=== PATIENT | female | born 1975 | race American Indian/Alaskan Native ===

== ENCOUNTER 2019-09-17 19:06 | Emergency (ER) | payer OTHER ==
[2019-09-17] MEDS ORDERED: cloNIDine 0.2 MG TAB PO ONE (20:18)
--- NOTE | 2019-09-17 20:54 | Emergency Department Report ---
HPI - General Chief Complaint: High BP PUI?: No Time Seen by Provider: 09/17/19 20:18 - HPI HPI: Room 18 The patient is a 44-year-old female present with a chief complaint of hypertension. The patient states last night while at rest she developed intermittent chest pain radiating to her back. The patient states the pain last ed for 4 hours and then resolved. Patient states that same time she also had intermittent headache and intermittent numbness in both hands. The patient went to the physician's office today and was found to be hypertensive and subsequently sent to the ED for further evaluation. Patient states she has not had any of the chest pain today and she currently does not have a headache. Patient denies shortness of breath, nausea/vomiting or diaphoresis with her chest pain. Patient denies cough. The patient states she was never diagnosed with hypertension in the past ED Past Medical Hx - Past Medical History Previous Medical History?: No - Surgical History Past Surgical History?: Yes Additional Surgical History: fibroids - Family History Family history: no significant - Social History Smoking Status: Former Smoker (None x20 years) Substance Use Type: None (Denies illicit drug use), Alcohol (Moderate) - Medications Home Medications: Home Medications Medication Instructions Recorded Confirmed Last Taken Type amLODIPine 5 mg PO DAILY #90 tab 09/17/19 Unknown Rx ED Review of Systems ROS: Stated complaint: BP HIGH Other details as noted in HPI Constitutional: denies: diaphoresis Eyes: denies: eye pain ENT: denies: throat pain Respiratory: denies: shortness of breath Cardiovascular: chest pain Endocrine: no symptoms reported Gastrointestinal: denies: nausea, vomiting Genitourinary: denies: dysuria Musculoskeletal: back pain Neurological: headache Physical Exam - Physical Exam Vital Signs: Vital Signs 09/17/19 09/17/19 09/17/19 19:14 20:19 20:30 Temperature 98.8 F Pulse Rate 88 73 Respiratory 18 16 Rate Blood Pressure 209/80 187/97 O2 Sat by Pulse 100 Oximetry Vital Signs 09/17/19 09/17/19 09/17/19 19:14 20:19 20:30 Temperature 98.8 F Pulse Rate 88 73 Respiratory 18 16 Rate Blood Pressure 209/80 187/97 Blood Pressure [Right] O2 Sat by Pulse 100 Oximetry 09/17/19 09/17/19 09/17/19 20:31 21:00 21:36 Temperature Pulse Rate 73 75 68 Respiratory 16 16 16 Rate Blood Pressure 171/89 Blood Pressure 187/97 177/88 [Right] O2 Sat by Pulse 99 98 100 Oximetry Physical Exam: GENERAL: The patient is well-developed well-nourished female lying on stretcher not appearing to be in acute distress. [] HEENT: Normocephalic. Atraumatic. Extraocular motions are intact. Patient has moist mucous membranes. NECK: Supple. Trachea midline CHEST/LUNGS: Clear to auscultation. There is no respiratory distress noted. HEART/CARDIOVASCULAR: Regular. There is no tachycardia. There is no gallop rub or murmur. ABDOMEN: Abdomen is soft, nontender. Patient has normal bowel sounds. There is no abdominal distention. SKIN: There is no rash. There is no edema. There is no diaphoresis. NEURO: The patient is awake, alert, and oriented. The patient is cooperative. The patient has no focal neurologic deficits. The patient has normal speech. Cranial nerves II through XII grossly intact, no drift MUSCULOSKELETAL: There is no evidence of acute injury. ED Course Vital Signs 09/17/19 09/17/19 09/17/19 19:14 20:19 20:30 Temperature 98.8 F Pulse Rate 88 73 Respiratory 18 16 Rate Blood Pressure 209/80 187/97 O2 Sat by Pulse 100 Oximetry ED Medical Decision Making - Lab Data Result diagrams: 09/17/19 20:55 09/17/19 20:55 Laboratory Tests 09/17/19 09/17/19 20:55 20:55 WBC 7.2 RBC 4.25 Hgb 8.6 L Hct 28.9 L MCV 68 L MCH 20 L MCHC 30 RDW 20.6 H Plt Count 421 Lymph % (Auto) Industrial Hygenist [place] % (Auto) Industrial Hygenist Eos % (Auto) Industrial Hygenist Baso % (Auto) Industrial Hygenist Lymph # Industrial Hygenist [place] # Industrial Hygenist Eos # Industrial Hygenist Baso # Industrial Hygenist Seg Neutrophils % Industrial Hygenist Seg Neutrophils # Industrial Hygenist Sodium 138 Potassium 4.1 Chloride 104.7 Carbon Dioxide 22 Anion Gap 15 BUN 7 Creatinine 0.6 L Estimated GFR > 60 BUN/Creatinine Ratio 12 Glucose 102 H Calcium 9.3 Total Creatine Kinase 179 H CK-MB (CK-2) 2.0 CK-MB (CK-2) Rel Index 1.1 Troponin T < 0.010 - EKG Data -: EKG Interpreted by [place] EKG shows normal: sinus rhythm Rate: normal - EKG Data When compared to previous EKG there are: previous EKG unavailable Interpretation: other (No ischemic changes seen) - Radiology Data Radiology results: report reviewed (Chest x-ray, CT head), image reviewed (Chest x-ray, CT head) interpreted by me: Chest x-ray-no focal infiltrates, no pneumothorax Findings [facility] [address] [place] [address] Cat Scan Report Signed Patient: FITO PIRES MR#: [id number] : 1975 Acct:[id number] Age/Sex: 44 / F ADM Date: 09/17/19 Loc: ED Attending Dr: Ordering Physician: ANTHONY GALVEZ MD Date of Service: 09/17/19 Procedure(s): CT head/brain wo con Accession Number(s): [id number] cc: ANTHONY GALVEZ MD CT HEAD WITHOUT CONTRAST INDICATION / CLINICAL INFORMATION: Hypertension, headache. TECHNIQUE: All CT scans at this location are performed using CT dose reduction for ALARA by means of automated exposure control. COMPARISON: None available. FINDINGS: HEMORRHAGE: No evidence of intracranial hemorrhage or extra-axial fluid collection. EXTRA-AXIAL SPACES: Cortical sulci, sylvian fissures and basilar cisterns have an unremarkable appearance. VENTRICULAR SYSTEM: The ventricular system is of normal size and configuration. CEREBRAL PARENCHYMA: No areas of abnormal brain parenchymal attenuation are identified. There is no indication of recent infarction. MIDLINE SHIFT OR HERNIATION: There is no mass effect. CEREBELLUM / BRAINSTEM: Brainstem and cerebellum have an unremarkable appearance. MIDLINE STRUCTURES:No abnormalities of the pituitary gland or pineal region are identified. INTRACRANIAL VESSELS:No abnormalities are identified on this noncontrast head CT. ORBITS: visualized portions of the orbits have an unremarkable appearance. SOFT TISSUES of HEAD: No significant abnormality. CALVARIUM: Evaluation of bone windows reveals no abnormalities. PARANASAL SINUSES / MASTOID AIR CELLS: Paranasal sinuses are free from inflammatory mucosal disease. Mastoid air cells are normally pneumatized. ADDITIONAL FINDINGS: None. IMPRESSION: 1. Normal head CT without contrast. Signer Name: Solomon Stevens MD Signed: 09/17/2019 9:45 PM Workstation Name: [id number] Transcribed By: Dictated By: Solomon Stevens MD Electronically Authenticated By: Solomon Stevens MD Signed Date/Time: 09/17/192144 DD/ 27 TD/TT: Findings [facility] [address] [place] [address] XRay Report Signed Patient: FITO PIRES MR#: [id number] : 1975 Acct:[id number] Age/Sex: 44 / F ADM Date: 09/17/19 Loc: ED Attending Dr: Ordering Physician: ANTHONY GALVEZ MD Date of Service: 09/17/19 Procedure(s): XR chest 1V ap Accession Number(s): [id number] cc: ANTHONY GALVEZ MD Fluoro Time In Minutes: CHEST 1 VIEW INDICATION / CLINICAL INFORMATION: chest pain. COMPARISON: None available. FINDINGS: SUPPORT DEVICES: None. HEART / MEDIASTINUM: No significant abnormality. LUNGS / PLEURA: No significant pulmonary or pleural abnormality.. No pneumothorax. ADDITIONAL FINDINGS: No significant additional findings. IMPRESSION: 1. No acute findings. Signer Name: Nick Pruitt MD Signed: 09/17/2019 9:14 PM Workstation Name: [id number] Transcribed By: Dictated By: Nick Pruitt MD Electronically Authenticated By: Nick Pruitt MD Signed Date/Time: 09/17/192113 DD/ 13 TD/TT: - Differential Diagnosis Hypertensive urgency, ACS, ICH, Critical care attestation.: If time is entered above; I have spent that time in minutes in the direct care of this critically ill patient, excluding procedure time. ED Disposition Clinical Impression: Hypertension Disposition: DC-01 TO HOME OR SELFCARE Is pt being admited?: No Does the pt Need Aspirin: No Condition: Stable Instructions: Hypertension (ED) Additional Instructions: Return to the emergency department should you develop worsening symptoms, inability to tolerate food or liquids, high fever or any other concerns Prescriptions: amLODIPine 5 mg PO DAILY #90 tab Referrals: [facility] [Provider Group] - 3-5 Days VITALY CAMARA DO [Staff Physician] - 3-5 Days (Dr Camara is a primary physician. Please follow-up with him to be established as a patient) Time of Disposition: 21:58
--- NOTE | 2019-09-17 21:19 | XRay Report ---
CHEST 1 VIEW INDICATION / CLINICAL INFORMATION: chest pain. COMPARISON: None available. FINDINGS: SUPPORT DEVICES: None. HEART / MEDIASTINUM: No significant abnormality. LUNGS / PLEURA: No significant pulmonary or pleural abnormality.. No pneumothorax. ADDITIONAL FINDINGS: No significant additional findings. IMPRESSION: 1. No acute findings. Signer Name: Nick Pruitt MD Signed: 09/17/2019 9:14 PM Workstation Name: [id number]
[2019-09-17 21:25] LABS: BUN/Creatinine Ratio 12; Blood Urea Nitrogen 7 mg/dL (7-17); Calcium 9.3 mg/dL (8.4-10.2); Hemolysis Index 17; Mean Corpuscular HGB Conc 30 % (30-34); Platelet Count 421 K/mm3 (140-440); Red Blood Count 4.25 M/mm3 (3.65-5.03)
[2019-09-17 21:26] LABS: Hematocrit 28.9 % (30.3-42.9); Hemoglobin 8.6 gm/dl (10.1-14.3); Mean Corpuscular Volume 68 fl (79-97); Red Cell Distribution Width 20.6 % (13.2-15.2)
--- NOTE | 2019-09-17 21:49 | Cat Scan Report ---
CT HEAD WITHOUT CONTRAST INDICATION / CLINICAL INFORMATION: Hypertension, headache. TECHNIQUE: All CT scans at this location are performed using CT dose reduction for ALARA by means of automated e xposure control. COMPARISON: None available. FINDINGS: HEMORRHAGE: No evidence of intracranial hemorrhage or extra-axial fluid collection. EXTRA-AXIAL SPACES: Cortical sulci, sylvian fissures and basilar cisterns have an unremarkable appear ance. VENTRICULAR SYSTEM: The ventricular system is of normal size and configuration. CEREBRAL PARENCHYMA: No areas of abnormal brain parenchymal attenuation are identified. There is no i ndication of recent infarction. MIDLINE SHIFT OR HERNIATION: There is no mass effect. CEREBELLUM / BRAINSTEM: Brainstem and cerebellum have an unremarkable appearance. MIDLINE STRUCTURES:No abnormalities of the pituitary gland or pineal region are identified. INTRACRANIAL VESSELS:No abnormalities are identified on this noncontrast head CT. ORBITS: visualized portions of the orbits have an unremarkable appearance. SOFT TISSUES of HEAD: No significant abnormality. CALVARIUM: Evaluation of bone windows reveals no abnormalities. PARANASAL SINUSES / MASTOID AIR CELLS: Paranasal sinuses are free from inflammatory mucosal disease. Mastoid air cells are normally pneumatized. ADDITIONAL FINDINGS: None. IMPRESSION: 1. Normal head CT without contrast. Signer Name: Solomon Stevens MD Signed: 09/17/2019 9:45 PM Workstation Name: [id number]
[2019-09-17 22:25] VITALS: BP 157/84
[2019-09-17 22:42] LABS: Total Cells Counted 100
[2019-09-17 22:46] LABS: Anisocytosis 1+; Hypochromasia Few; Macrocytosis Few; Ovalocytes Few; Platelet Estimate Consistent w Auto; Target Cells Rare
== END 2019-09-17 22:25 | disposition home or self-care (01) ==
LOC: ED 19:06
DX: I10 Essential (primary) hypertension (principal); Z87.891 Personal history of nicotine dependence; Z79.899 Other long term (current) drug therapy
CPT/HCPCS: 36415; 70450; 71045; 80048; 82550; 82553; 84484; 85007; 85025; 93005

== ENCOUNTER 2020-08-03 16:35 | Emergency (ER) | payer OTHER ==
[2020-08-03 16:49] VITALS: BP 120/90
[2020-08-03 19:49] LABS: Hematocrit 32.8 % (30.3-42.9); Hemoglobin 10.2 gm/dl (10.1-14.3); Mean Corpuscular HGB Conc 31 % (30-34); Mean Corpuscular Volume 71 fl (79-97); Platelet Count 366 K/mm3 (140-440); Red Blood Count 4.63 M/mm3 (3.65-5.03)
[2020-08-03 19:54] LABS: Red Cell Distribution Width 26.4 % (13.2-15.2)
[2020-08-03 20:13] LABS: Alanine Aminotransferase 20 units/L (7-56); Albumin 4.2 g/dL (3.9-5); BUN/Creatinine Ratio 10; Blood Urea Nitrogen 7 mg/dL (7-17); Calcium 8.2 mg/dL (8.4-10.2); Hemolysis Index 1
--- NOTE | 2020-08-03 20:21 | XRay Report ---
CHEST 2 VIEWS INDICATION / CLINICAL INFORMATION: chest pain and palpitations. COMPARISON: None available. FINDINGS: SUPPORT DEVICES: None. HEART / MEDIASTINUM: No significant abnormality. LUNGS / PLEURA: No significant pulmonary or pleural abnormality. No pneumothorax. ADDITIONAL FINDINGS: No significant additional findings. IMPRESSION: 1. No acute findings. Signer Name: Joesph Fairbanks MD Signed: 08/03/2020 8:17 PM Workstation Name: [id number]
--- NOTE | 2020-08-04 01:01 | Emergency Department Report ---
ED General Adult HPI - General Chief complaint: High BP Stated complaint: HBP PUI?: No Source: patient Mode of arrival: Ambulatory Limitations: No Limitations - History of Present Illness Initial comments: 45-year-old F Bah[place]ian female past medical history of hypertension reports emergency department complaining of 1 more week history of various episodes of chest pain unknown etiology chest pain is sporadic in duration and discomfort. She reports not taking her blood pressure medication over several months. When pain is present pain is sharp throbbing in nature she reports no fever, chills, sweats. No nausea, no vomiting no hemoptysis no hematemesis hematochezia. -: week(s) Location: chest Radiation: non-radiation Quality: aching, dull Improves with: none Worsens with: none Associated Symptoms: chest pain. denies: confusion, diaphoresis, fever/chills, headaches, loss of appetite, rash, seizure, syncope, weakness - Related Data Previous Rx's Medication Instructions Recorded Last Taken Type amLODIPine 5 mg PO DAILY #90 tab 09/17/19 Unknown Rx Allergies Allergy/AdvReac Type Severity Reaction Status Date / Time No Known Allergies Allergy Verified 09/17/19 19:17 ED Review of Systems ROS: Stated complaint: HBP Other details as noted in HPI Comment: All other systems reviewed and negative ED Past Medical Hx - Past Medical History Hx Hypertension: Yes - Surgical History Past Surgical History?: Yes Additional Surgical History: fibroids - Social History Smoking Status: Never Smoker - Medications Home Medications: Home Medications Medication Instructions Recorded Confirmed Last Taken Type amLODIPine 5 mg PO DAILY #90 tab 09/17/19 Unknown Rx ED Physical Exam - General Limitations: No Limitations General appearance: alert, in no apparent distress - Head Head exam: Present: atraumatic, normocephalic - Eye Eye exam: Present: normal appearance, PERRL, EOMI Pupils: Present: normal accommodation - ENT ENT exam: Present: mucous membranes moist - Neck Neck exam: Present: normal inspection, full ROM - Respiratory Respiratory exam: Present: normal lung sounds bilaterally. Absent: respiratory distress, wheezes, rales, chest wall tenderness, accessory muscle use - Cardiovascular Cardiovascular Exam: Present: regular rate, normal rhythm. Absent: systolic murmur, diastolic murmur, rubs, gallop - GI/Abdominal GI/Abdominal exam: Present: soft, tenderness (Mild tenderness to the epigastric region with palpation. No bloating bowel sounds normal. No Lozoya sign, no Rovsing, no Michael Pittman, no tenderness at McBurney's), normal bowel sounds - Extremities Exam Extremities exam: Present: normal inspection, tenderness, normal capillary refill - Back Exam Back exam: Present: normal inspection. Absent: CVA tenderness (R), CVA tenderness (L) - Neurological Exam Neurological exam: Present: alert, oriented X3, CN II-XII intact, normal gait - Psychiatric Psychiatric exam: Present: normal affect, normal mood. Absent: manic, homicidal ideation - Skin Skin exam: Present: warm, dry, intact, normal color. Absent: rash, diaphoretic ED Course Vital Signs 08/03/20 16:45 Temperature 99.1 F Pulse Rate 74 Respiratory 16 Rate Blood Pressure 120/90 [Right] O2 Sat by Pulse 98 Oximetry ED Medical Decision Making - Lab Data Result diagrams: 08/03/20 19:13 08/03/20 19:13 - EKG Data EKG shows normal: sinus rhythm Rate: normal - EKG Data Interpretation: normal EKG - Radiology Data Radiology results: report reviewed [address] [place] [address] XRay Report Signed Patient: FITO PIRES MR#: [id number] : 1975 Acct:[id number] Age/Sex: 45 / F ADM Date: 08/03/20 Loc: ED Attending Dr: Ordering Physician: MYLA RIOS Date of Service: 08/03/20 Procedure(s): XR chest routine 2V Accession Number(s): [id number] cc: MYLA RIOS Fluoro Time In Minutes: CHEST 2 VIEWS INDICATION / CLINICAL INFORMATION: chest pain and palpitations. COMPARISON: None available. FINDINGS: SUPPORT DEVICES: None. HEART / MEDIASTINUM: No significant abnormality. LUNGS / PLEURA: No significant pulmonary or pleural abnormality. No pneumothorax. ADDITIONAL FINDINGS: No significant additional findings. IMPRESSION: 1. No acute findings. Signer Name: Joesph Fairbanks MD Signed: 08/03/2020 8:17 PM Workstation Name: [id number] Transcribed By: CW Dictated By: JENNIFER FAIRBANKS MD Electronically Authenticated By: JENNIFER FAIRBANKS MD Signed Date/Time: 08/03/202016 DD/ 16 TD/TT: - Medical Decision Making This patient presents with chest pain that is very unlikely angina or acute coronary syndrome. The emergency department evaluation has not identified any ca use for suspicion that this chest pain has a cardiac etiology. Based on their history, EKG (which showed no evidence of ischemia or infarction) and imaging, in addition to the patient's physical exam, I see no evidence at this time for a malignant etiology for the patient's chest pain. There is no acute evidence for pulmonary embolus, acute myocardial infarction, pneumothorax, Boerhaeve syndrome, cardiac tamponade, thoracic artery dissection, or any other emergent cardiac, pulmonary or aortic pathology. Given the low pre-test probability for cardiac etiology of chest pain and the absence of any sign of ischemia or infarction, discharge for outpatient follow-up and further evaluation is reaso nable. I have explained to the patient that even though a cardiac problem is very unlikely, follow-up and further testing is required to reduce further the already small uncertainty that exists. Other life-threatening diagnoses have been considered. The patient understands the need to return immediately if their symptoms worsen or they develop any new symptoms, and not to engage in any significant exertional activity until follow-up is obtained. Critical care attestation.: If time is entered above; I have spent that time in minutes in the direct care of this critically ill patient, excluding procedure time. ED Disposition Clinical Impression: Chest pain at rest Disposition: DC-01 TO HOME OR SELFCARE Is pt being admited?: No Does the pt Need Aspirin: No Condition: Stable Instructions: Nonspecific Chest Pain, Adult Additional Instructions: As previously discussed your findings today were normal please be sure to follow-up with cardiology for further evaluation of your chest pain. Referrals: PRIMARY MD RAGINI [Primary Care Provider] - 3-5 Days KRIS VELASQUEZ MD [Staff Physician] - 3-5 Days
--- NOTE | 2020-08-06 09:30 | Electrocardiograph Report ---
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
== END 2020-08-04 01:30 | disposition home or self-care (01) ==
LOC: ED 16:35
DX: R07.89 Other chest pain (principal); I10 Essential (primary) hypertension; Z98.890 Other specified postprocedural states; Z79.899 Other long term (current) drug therapy
CPT/HCPCS: 36415; 71046; 80053; 83690; 84484; 85027; 93005

== ENCOUNTER 2020-11-19 19:40 | Emergency (ER) | payer OTHER ==
[2020-11-19] MEDS ORDERED: ASPIRIN 325 MG TAB PO ONE (21:30)
[2020-11-19 22:19] LABS: Basophils # (Auto) 0.1 K/mm3 (0.0-0.1); Basophils % (Auto) 1.1 % (0.0-1.8); Eosinophils # (Auto) 0.2 K/mm3 (0.0-0.4); Eosinophils % (Auto) 2.6 % (0.0-4.3); Hematocrit 33.8 % (30.3-42.9); Hemoglobin 10.8 gm/dl (10.1-14.3); Lymphocytes # (Auto) 2.1 K/mm3 (1.2-5.4); Lymphocytes % (Auto) 26.9 % (13.4-35.0); Mean Corpuscular HGB Conc 32 % (30-34); Mean Corpuscular Volume 81 fl (79-97); Monocytes # (Auto) 0.4 K/mm3 (0.0-0.8); Monocytes % (Auto) 5.6 % (0.0-7.3); Platelet Count 392 K/mm3 (140-440); Red Blood Count 4.17 M/mm3 (3.65-5.03); Red Cell Distribution Width 18.3 % (13.2-15.2)
[2020-11-19 22:30] LABS: Alanine Aminotransferase 23 units/L (7-56); Albumin 4.4 g/dL (3.9-5); Blood Urea Nitrogen 7 mg/dL (7-17); Calcium 8.9 mg/dL (8.4-10.2); Hemolysis Index 3
[2020-11-19 22:50] LABS: BUN/Creatinine Ratio 14
--- NOTE | 2020-11-19 23:29 | XRay Report ---
CHEST 2 VIEWS INDICATION / CLINICAL INFORMATION: chest pain. COMPARISON: 08/03/20 FINDINGS: SUPPORT DEVICES: None. HEART / MEDIASTINUM: No significant abnormality. LUNGS / PLEURA: No significant pulmonary or pleural abnormality. No pneumothorax. ADDITIONAL FINDINGS: No significant additional findings. IMPRESSION: 1. No acute findings. Signer Name: Kimberli Khan MD Signed: 11/19/2020 11:24 PM Workstation Name: [id number]
[2020-11-20] MEDS ORDERED: BUTALB/ACETAMINOPHEN/CAFFEINE TAB PO ONE (11:00)
[2020-11-20] MEDS ORDERED: amLODIPine 5 MG TAB PO ONE (11:00)
--- NOTE | 2020-11-20 11:02 | Emergency Department Report ---
ED General Adult HPI - General Chief complaint: Chest Pain Stated complaint: HTN Time Seen by Provider: 11/20/20 10:40 Source: patient Mode of arrival: Ambulatory Limitations: No Limitations - History of Present Illness Initial comments: Patient presents to the emergency department the chief complaint of elevated blood pressure. Patient states she has not taken blood pressure medications in over 6 months. Patient patient with urgent care yesterday to get blood pressure meds prescribed to her and upon evaluation she was told to come to the ED due to her having chest pain and headache. Patient dates she had chest pain continuously for the last couple of days but has been present for the last 6 months. Patient states that the headache is throbbing in nature and has been present for approximately 2 to 3 days. Patient denies this being the worst he adache of her life. Patient states she was told her systolic blood pressures greater than 200 at urgent care. -: unknown Location: head, chest Severity scale (0 -10): 6 Quality: dull Consistency: constant Improves with: none Worsens with: none Associated Symptoms: denies other symptoms Treatments Prior to Arrival: none - Related Data Previous Rx's Medication Instructions Recorded Last Taken Type amLODIPine 5 mg PO DAILY #90 tab 09/17/19 Unknown Rx amLODIPine [Norvasc] 10 mg PO DAILY #30 tab 11/20/20 Unknown Rx hydroCHLOROthiazide [Hctz] 12.5 mg PO QDAY #30 capsule 11/20/20 Unknown Rx Allergies Allergy/AdvReac Type Severity Reaction Status Date / Time No Known Allergies Allergy Verified 11/20/20 10:31 ED Review of Systems ROS: Stated complaint: HTN Other details as noted in HPI Comment: All other systems reviewed and negative Constitutional: denies: chills, fever Eyes: denies: eye pain, eye discharge, vision change ENT: denies: ear pain, throat pain Respiratory: denies: cough, shortness of breath, wheezing Cardiovascular: chest pain. denies: palpitations Endocrine: no symptoms reported Gastrointestinal: denies: abdominal pain, nausea, diarrhea Genitourinary: denies: urgency, dysuria, discharge Musculoskeletal: denies: back pain, joint swelling, arthralgia Skin: denies: rash, lesions Neurological: headache. denies: weakness, paresthesias Psychiatric: denies: anxiety, depression Hematological/Lymphatic: denies: easy bleeding, easy bruising ED Past Medical Hx - Past Medical History Previous Medical History?: Yes Hx Hypertension: Yes - Surgical History Past Surgical History?: Yes Additional Surgical History: fibroids - Social History Smoking Status: Never Smoker Substance Use Type: None - Medications Home Medications: Home Medications Medication Instructions Recorded Confirmed Last Taken Type amLODIPine 5 mg PO DAILY #90 tab 09/17/19 11/20/20 Unknown Rx amLODIPine [Norvasc] 10 mg PO DAILY #30 tab 11/20/20 Unknown Rx hydroCHLOROthiazide [Hctz] 12.5 mg PO QDAY #30 capsule 11/20/20 Unknown Rx ED Physical Exam - General Limitations: No Limitations General appearance: alert, in no apparent distress - Head Head exam: Present: atraumatic, normocephalic - Eye Eye exam: Present: normal appearance - ENT ENT exam: Present: mucous membranes moist - Neck Neck exam: Present: normal inspection - Respiratory Respiratory exam: Present: normal lung sounds bilaterally. Absent: respiratory distress - Cardiovascular Cardiovascular Exam: Present: regular rate, normal rhythm. Absent: systolic murmur, diastolic murmur, rubs, gallop - GI/Abdominal GI/Abdominal exam: Present: soft, normal bowel sounds. Absent: distended, tende rness - Extremities Exam Extremities exam: Present: normal inspection - Back Exam Back exam: Present: normal inspection - Neurological Exam Neurological exam: Present: alert, oriented X3, CN II-XII intact. Absent: motor sensory deficit - Psychiatric Psychiatric exam: Present: normal affect, normal mood - Skin Skin exam: Present: warm, dry, intact, normal color. Absent: rash ED Course Vital Signs 11/19/20 11/20/20 11/20/20 21:14 09:49 10:01 Temperature 98.6 F Pulse Rate 84 60 58 L Respiratory 16 20 17 Rate Blood Pressure 200/100 Blood Pressure [Left] O2 Sat by Pulse 100 100 100 Oximetry 11/20/20 11/20/20 11/20/20 10:15 10:28 10:31 Temperature Pulse Rate 54 L 55 L Respiratory 16 16 18 Rate Blood Pressure Blood Pressure [Left] O2 Sat by Pulse 100 99 100 Oximetry 11/20/20 11/20/20 11/20/20 10:45 11:01 11:12 Temperature Pulse Rate 56 L 65 64 Respiratory 16 16 16 Rate Blood Pressure 205/90 Blood Pressure [Left] O2 Sat by Pulse 100 100 Oximetry 11/20/20 11/20/20 11/20/20 11:15 11:31 11:45 Temperature Pulse Rate 59 L 60 54 L Respiratory 16 11 L 16 Rate Blood Pressure 205/90 203/88 212/87 Blood Pressure [Left] O2 Sat by Pulse 100 100 100 Oximetry 11/20/20 11/20/20 11/20/20 12:01 12:14 12:47 Temperature Pulse Rate 52 L 85 64 Respiratory 14 16 15 Rate Blood Pressure 202/90 179/69 Blood Pressure 205/90 [Left] O2 Sat by Pulse 100 97 100 Oximetry ED Medical Decision Making - Lab Data Result diagrams: 11/19/20 21:33 11/19/20 21:33 Lab Results 11/19/20 11/19/20 11/19/20 Range/Units 21:33 21:33 21:33 WBC 7.8 (4.5-11.0) K/mm3 RBC 4.17 (3.65-5.03) M/mm3 Hgb 10.8 (10.1-14.3) gm/dl Hct 33.8 (30.3-42.9) % MCV 81 (79-97) fl MCH 26 L (28-32) pg MCHC 32 (30-34) % RDW 18.3 H (13.2-15.2) % Plt Count 392 (140-440) K/mm3 Lymph % (Auto) 26.9 (13.4-35.0) % Howard % (Auto) 5.6 (0.0-7.3) % Eos % (Auto) 2.6 (0.0-4.3) % Baso % (Auto) 1.1 (0.0-1.8) % Lymph # (Auto) 2.1 (1.2-5.4) K/mm3 Howard # (Auto) 0.4 (0.0-0.8) K/mm3 Eos # (Auto) 0.2 (0.0-0.4) K/mm3 Baso # (Auto) 0.1 (0.0-0.1) K/mm3 Seg Neutrophils % 63.8 (40.0-70.0) % Seg Neutrophils # 5.0 (1.8-7.7) K/mm3 Sodium 139 (137-145) mmol/L Potassium 3.9 (3.6-5.0) mmol/L Chloride 104.5 (98-107) mmol/L Carbon Dioxide 23 (22-30) mmol/L Anion Gap 15 mmol/L BUN 7 (7-17) mg/dL Creatinine 0.5 L (0.6-1.2) mg/dL Estimated GFR > 60 ml/min BUN/Creatinine Ratio 14 % Glucose 92 (65-100) mg/dL Calcium 8.9 (8.4-10.2) mg/dL Total Bilirubin < 0.20 (0.1-1.2) mg/dL AST 22 (5-40) units/L ALT 23 (7-56) units/L Alkaline Phosphatase 69 (35-129) units/L Troponin T < 0.010 (0.00-0.029) ng/mL Total Protein 7.6 (6.3-8.2) g/dL Albumin 4.4 (3.9-5) g/dL Albumin/Globulin Ratio 1.4 % HCG, Qual Negative (Negative) 11/20/20 11/20/20 Range/Units 01:30 05:41 WBC (4.5-11.0) K/mm3 RBC (3.65-5.03) M/mm3 Hgb (10.1-14.3) gm/dl Hct (30.3-42.9) % MCV (79-97) fl MCH (28-32) pg MCHC (30-34) % RDW (13.2-15.2) % Plt Count (140-440) K/mm3 Lymph % (Auto) (13.4-35.0) % Howard % (Auto) (0.0-7.3) % Eos % (Auto) (0.0-4.3) % Baso % (Auto) (0.0-1.8) % Lymph # (Auto) (1.2-5.4) K/mm3 Howard # (Auto) (0.0-0.8) K/mm3 Eos # (Auto) (0.0-0.4) K/mm3 Baso # (Auto) (0.0-0.1) K/mm3 Seg Neutrophils % (40.0-70.0) % Seg Neutrophils # (1.8-7.7) K/mm3 Sodium (137-145) mmol/L Potassium (3.6-5.0) mmol/L Chloride (98-107) mmol/L Carbon Dioxide (22-30) mmol/L Anion Gap mmol/L BUN (7-17) mg/dL Creatinine (0.6-1.2) mg/dL Estimated GFR ml/min BUN/Creatinine Ratio % Glucose (65-100) mg/dL Calcium (8.4-10.2) mg/dL Total Bilirubin (0.1-1.2) mg/dL AST (5-40) units/L ALT (7-56) units/L Alkaline Phosphatase (35-129) units/L Troponin T < 0.010 < 0.010 (0.00-0.029) ng/mL Total Protein (6.3-8.2) g/dL Albumin (3.9-5) g/dL Albumin/Globulin Ratio % HCG, Qual (Negative) - EKG Data -: EKG Interpreted by Me EKG shows normal: sinus rhythm Rate: normal - Radiology Data Radiology results: report reviewed - Medical Decision Making RESULTS DISCUSSED WITH PT Critical care attestation.: If time is entered above; I have spent that time in minutes in the direct care of this critically ill patient, excluding procedure time. ED Disposition Clinical Impression: Hypertension, Chest pain, non-cardiac, Headache Disposition: TO HOME OR SELFCARE Is pt being admited?: No Does the pt Need Aspirin: No Condition: Stable Instructions: Hypertension (ED), Nonspecific Chest Pain, Adult Additional Instructions: return if worse Referrals: PRIMARY CARE,MD [Primary Care Provider] - 3-5 Days JOAQUIN JOSEPH MD [Staff Physician] - 3-5 Days [facility] [Provider Group] - 3-5 Days [facility] [Provider Group] - 3-5 Days DESMOND SERRATO MD [Staff Physician] - 3-5 Days [facility] [Outside] - 3-5 Days Heart Score - HEART Score History: Slightly suspicious EKG: Normal Age: < 45 Risk factors: 1-2 risk factors Troponin: < normal limit HEART Score: 1 - EKG Read Time Time EKG Completed: 00:00 EKG Read Time: 00:00 - Critical Actions Critical Actions: 0-3 pts:0.9-1.7%risk of adverse cardiac event.Candidate for discharge
[2020-11-20 12:48] VITALS: BP 179/69
--- NOTE | 2020-11-20 12:51 | Cat Scan Report ---
CT head/brain wo con INDICATION / CLINICAL INFORMATION: 45 years Female; Headache. TECHNIQUE: Routine CT head without contrast. All CT scans at this location are performed using CT dos e reduction for ALARA by means of automated exposure control. COMPARISON: The study is compared to the previous CT of 09/17/2019. FINDINGS: BRAIN / INTRACRANIAL CONTENTS: The brain parenchyma appears to demonstrate appropriate attenuation. T he ventricular system remains within normal limits in size and configuration. There is no clear CT ev idence of acute intracranial hemorrhage or significant mass effect. ORBITS: No significant abnormality of visualized orbits. SINUSES / MASTOIDS: No significant abnormality in the visualized paranasal sinuses or mastoid air marisol ls. CRANIOCERVICAL JUNCTION: No significant abnormality. ADDITIONAL FINDINGS: None. IMPRESSION: 1. There is no CT evidence of acute intracranial process. Signer Name: Kenji Hardy MD Signed: 11/20/2020 12:46 PM Workstation Name: [id number]
--- NOTE | 2020-11-20 13:01 | Electrocardiograph Report ---
[facility] Test Date: 2020-11-19 Test Time: 21:26:15 Pat Name: FITO PIRES Department: Room: Gender: F [employer] Att[employer]: : 1975 Requested By: ED DOC Order Number: [id number] Reading MD: Femi Jovel Measurements Intervals [place] Rate: 71 P: 63 [place]: 117 QRS: 19 QRSD: 78 T: 34 QT: 377 QTc: 410 Interpretive Statements Sinus rhythm Compared to ECG 08/03/2020 16:53:06 No significant change Electronically Signed On 11-20-2020 13:00:59 EDT by Femi Jovel
== END 2020-11-20 13:28 | disposition home or self-care (01) ==
LOC: ED 19:40
DX: I10 Essential (primary) hypertension (principal); R51.9 Headache, unspecified; Z79.899 Other long term (current) drug therapy
CPT/HCPCS: 36415; 70450; 71046; 80053; 84484; 84703; 85025; 93005; 99284

== ENCOUNTER 2020-12-26 00:24 | Emergency (ER) | payer OTHER ==
[2020-12-26 00:40] VITALS: BP 147/93
[2020-12-26] MEDS ORDERED: ASPIRIN 325 MG TAB PO ONE (00:41)
[2020-12-26 01:31] LABS: Alanine Aminotransferase 21 units/L (7-56); Albumin 4.3 g/dL (3.9-5); Blood Urea Nitrogen 11 mg/dL (7-17); Calcium 8.7 mg/dL (8.4-10.2); Hemolysis Index 8
[2020-12-26 01:36] LABS: BUN/Creatinine Ratio 22
--- NOTE | 2020-12-26 01:37 | XRay Report ---
CHEST 2 VIEWS INDICATION / CLINICAL INFORMATION: chest pain. COMPARISON: None available. FINDINGS: SUPPORT DEVICES: None. HEART / MEDIASTINUM: No significant abnormality. LUNGS / PLEURA: No significant pulmonary or pleural abnormality. No pneumothorax. ADDITIONAL FINDINGS: No significant additional findings. IMPRESSION: 1. No acute findings. Signer Name: Joesph Fairbanks MD Signed: 12/26/2020 1:33 AM Workstation Name: [id number]
[2020-12-26 01:47] LABS: Basophils # (Auto) 0.1 K/mm3 (0.0-0.1); Basophils % (Auto) 1.1 % (0.0-1.8); Eosinophils # (Auto) 0.3 K/mm3 (0.0-0.4); Eosinophils % (Auto) 5.2 % (0.0-4.3); Hematocrit 31.1 % (30.3-42.9); Lymphocytes # (Auto) 2.4 K/mm3 (1.2-5.4); Lymphocytes % (Auto) 36.9 % (13.4-35.0); Mean Corpuscular HGB Conc 32 % (30-34); Mean Corpuscular Volume 78 fl (79-97); Monocytes # (Auto) 0.4 K/mm3 (0.0-0.8); Monocytes % (Auto) 5.7 % (0.0-7.3); Platelet Count 386 K/mm3 (140-440); Red Blood Count 3.97 M/mm3 (3.65-5.03); Red Cell Distribution Width 16.9 % (13.2-15.2)
--- NOTE | 2020-12-26 03:37 | Emergency Department Report ---
ED General Adult HPI - General Chief complaint: Chest Pain Stated complaint: FEELS LIKE HEART ATTACK Time Seen by Provider: 12/26/20 00:56 Source: patient Mode of arrival: Ambulatory Limitations: No Limitations - History of Present Illness Initial comments: Patient is a 45-year-old female who is presenting with chest pain. Patient states she feels as though she is having a heart attack. States while at work earlier today she had a/sharp pain in the center chest. States this lasted for several minutes and then resolved. Patient states that when she for started having the pain it was worse when she would move her right arm. 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 Denies any pleuritic pain cough cold congestion fevers chills nausea vomiting. States the pain and the feeling of being faint has improved since she has been here. - Related Data Previous Rx's Medication Instructions Recorded Last Taken Type amLODIPine 5 mg PO DAILY #90 tab 09/17/19 Unknown Rx amLODIPine [Norvasc] 10 mg PO DAILY #30 tab 11/20/20 Unknown Rx hydroCHLOROthiazide [Hctz] 12.5 mg PO QDAY #30 capsule 11/20/20 Unknown Rx Allergies Allergy/AdvReac Type Severity Reaction Status Date / Time No Known Allergies Allergy Verified 11/20/20 10:31 ED Review of Systems ROS: Stated complaint: FEELS LIKE HEART ATTACK Other details as noted in HPI Comment: All other systems reviewed and negative ED Past Medical Hx - Past Medical History Previous Medical History?: Yes Hx Hypertension: Yes - Surgical History Past Surgical History?: Yes Additional Surgical History: fibroids - Social History Smoking Status: Never Smoker Substance Use Type: None - Medications Home Medications: Home Medications Medication Instructions Recorded Confirmed Last Taken Type amLODIPine 5 mg PO DAILY #90 tab 20 11/20/20 Unknown Rx amLODIPine [Norvasc] 10 mg PO DAILY #30 tab 11/20/20 Unknown Rx hydroCHLOROthiazide [Hctz] 12.5 mg PO QDAY #30 capsule 11/20/20 Unknown Rx ED Physical Exam - General Limitations: No Limitations General appearance: alert, in no apparent distress - Head Head exam: Present: atraumatic, normocephalic - Eye Eye exam: Present: normal appearance, PERRL, EOMI - ENT ENT exam: Present: mucous membranes moist - Neck Neck exam: Present: normal inspection - Respiratory Respiratory exam: Present: normal lung sounds bilaterally. Absent: respiratory distress, wheezes, rales, rhonchi - Cardiovascular Cardiovascular Exam: Present: regular rate, normal rhythm, normal heart sounds. Absent: systolic murmur, diastolic murmur, rubs, gallop - GI/Abdominal GI/Abdominal exam: Present: soft, normal bowel sounds. Absent: distended, tenderness, guarding, rebound - Extremities Exam Extremities exam: Present: normal inspection - Back Exam Back exam: Present: normal inspection - Neurological Exam Neurological exam: Present: alert, oriented X3 - Psychiatric Psychiatric exam: Present: normal affect, normal mood - Skin Skin exam: Present: warm, dry, intact, normal color. Absent: rash ED Course Vital Signs 12/26/20 00:37 Temperature 97.8 F Pulse Rate 83 Respiratory 18 Rate Blood Pressure 147/93 O2 Sat by Pulse 94 Oximetry ED Medical Decision Making - Lab Data Result diagrams: 12/26/20 00:51 12/26/20 00:51 Lab Results 12/26/20 12/26/20 12/26/20 Range/Units 00:51 00:51 02:50 WBC 6.6 (4.5-11.0) K/mm3 RBC 3.97 (3.65-5.03) M/mm3 Hgb 10.0 L (10.1-14.3) gm/dl Hct 31.1 (30.3-42.9) % MCV 78 L (79-97) fl MCH 25 L (28-32) pg MCHC 32 (30-34) % RDW 16.9 H (13.2-15.2) % Plt Count 386 (140-440) K/mm3 Lymph % (Auto) 36.9 H (13.4-35.0) % [place] % (Auto) 5.7 (0.0-7.3) % Eos % (Auto) 5.2 H (0.0-4.3) % Baso % (Auto) 1.1 (0.0-1.8) % Lymph # (Auto) 2.4 (1.2-5.4) K/mm3 [place] # (Auto) 0.4 (0.0-0.8) K/mm3 Eos # (Auto) 0.3 (0.0-0.4) K/mm3 Baso # (Auto) 0.1 (0.0-0.1) K/mm3 Seg Neutrophils % 51.1 (40.0-70.0) % Seg Neutrophils # 3.4 (1.8-7.7) K/mm3 Sodium 138 (137-145) mmol/L Potassium 3.9 (3.6-5.0) mmol/L Chloride 103.5 (98-107) mmol/L Carbon Dioxide 25 (22-30) mmol/L Anion Gap 13 mmol/L BUN 11 (7-17) mg/dL Creatinine 0.5 L (0.6-1.2) mg/dL Estimated GFR > 60 ml/min BUN/Creatinine Ratio 22 % Glucose 104 H (65-100) mg/dL Calcium 8.7 (8.4-10.2) mg/dL Total Bilirubin < 0.20 (0.1-1.2) mg/dL AST 21 (5-40) units/L ALT 21 (7-56) units/L Alkaline Phosphatase 69 (35-129) units/L Troponin T < 0.010 < 0.010 (0.00-0.029) ng/mL Total Protein 7.9 (6.3-8.2) g/dL Albumin 4.3 (3.9-5) g/dL Albumin/Globulin Ratio 1.2 % - EKG Data -: EKG Interpreted by Ks EKG shows normal: sinus rhythm, axis, intervals, QRS complexes, ST-T waves Rate: normal - EKG Data Interpretation: normal EKG - Radiology Data Radiology results: report reviewed, image reviewed cxr wnl - Medical Decision Making Patient is a 45-year-old female who is presenting with chest discomfort. Pat ient denies any trauma or heavy lifting but states the pain is worse when she is moving her right arm. States she did have some episodes this evening where she felt faint. EKG is normal chest x-ray shows no acute process and her heart score is low. Believe the patient is a good candidate for outpatient therapy. Patient had her information faxed to the cardiology office for close follow-up and the patient stable for discharge. Critical care attestation.: If time is entered above; I have spent that time in minutes in the direct care of this critically ill patient, excluding procedure time. ED Disposition Clinical Impression: Atypical chest pain Disposition: HOME / SELF CARE / HOMELESS Is pt being admited?: No Does the pt Need Aspirin: No Condition: Stable Instructions: Nonspecific Chest Pain, Adult Additional Instructions: Referral to [facility] has been sent. They will contact you via phone. They may do it ultrasound of the heart called echocardiogram to make sure that your valves are working properly, a stress test or place you on a Holter monitor Referrals: KRIS VELASQUEZ MD [Staff Physician] - 3-5 Days Time of Disposition: 03:38 Heart Score - HEART Score History: Slightly suspicious EKG: Normal Age: 45-65 Risk factors: 1-2 risk factors Troponin: < normal limit HEART Score: 2 - EKG Read Time Time EKG Completed: 00:00 EKG Read Time: 00:00
--- NOTE | 2020-12-28 09:43 | Electrocardiograph Report ---
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
== END 2020-12-26 03:52 | disposition home or self-care (01) ==
LOC: ED 00:24
DX: R07.89 Other chest pain (principal); I10 Essential (primary) hypertension; Z79.899 Other long term (current) drug therapy
CPT/HCPCS: 36415; 71046; 80053; 84484; 85025; 93005; 99283